=== PATIENT | male | born 1995 | race Caucasian/White ===

== ENCOUNTER 2017-01-23 14:10 | Emergency (ER) | payer OTHER ==
[2017-01-23] MEDS ORDERED: NS 1,000 ML IV ONE (14:15)
[2017-01-23] MEDS ORDERED: HYDROmorphONE/DILAUDID 1 MG/ML SYR IVP ONE ×2 (14:15→15:14)
--- NOTE | 2017-01-23 14:18 | EDPHY ---
H & P Source: Patient Exam Limitations: No limitations - Medical/Surgical History Hx Asthma: No Hx Chronic Respiratory Disease: No Hx Diabetes: No Hx Cardiac Disease: No Hx Renal Disease: No Hx Cirrhosis: No Hx Alcoholism: No - Family History Significant Family History: No pertinent family hx - Social History Alcohol Use: Sober Drug Use: None HPI/ROS: CHIEF COMPLAINT: Right ankle pain HISTORY OF PRESENT ILLNESS: Patient is a 21-year-old man who comes to the emergency department. He ran his foot and ankle over with a palate that he was pulling. This happened just prior to arrival. He has a laceration at the Achilles tendon region and some contusion to the anterior ankle. Neurovascularly intact. REVIEW OF SYSTEMS: Constitutional: denies: chills, fever, recent illness, recent injury EENTM: denies: blurred vision, double vision, nose congestion Respiratory: denies: cough, shortness of breath Cardiac: denies: chest pain, irregular heart rate, lightheadedness, palpitations Gastrointestinal/Abdominal: denies: abdominal pain, diarrhea, nausea, vomiting, blood streaked stools Genitourinary: denies: dysuria, frequency, hematuria, pain Musculoskeletal: See HPI Skin: denies: lesions, rash, jaundice, bruising Neurological: denies: headache, numbness, paresthesia, tingling, dizziness, weakness Hematologic/Lymphatic: denies: blood clots, easy bleeding, easy bruising Immunologic/allergic: denies: HIV/AIDS, transplant EXAM: GENERAL: Well-appearing, well-nourished and in no acute distress. HEAD: Atraumatic, normocephalic. EYES: Pupils equal round and reactive to light, extraocular movements intact, sclera anicteric, conjunctiva are normal. ENT: TMs normal, nares patent, oropharynx clear without exudates. Moist mucous membranes. NECK: Normal range of motion, supple without lymphadenopathy or JVD. LUNGS: Breath sounds clear to auscultation bilaterally and equal. No wheezes rales or rhonchi. HEART: Regular rate and rhythm without murmurs, rubs or gallops. ABDOMEN: Soft, nontender, normoactive bowel sounds. No guarding, no rebound. No masses appreciated. BACK: No CVA tenderness, no spinal tenderness, step-offs or deformities EXTREMITIES: Contusion to anterior right ankle. No deformity. No bony tenderness. Laceration above the Achilles tendon but normal function and range of motion. Strong pulses distally. Able to wiggle toes and depress gas pedal NEUROLOGICAL: Cranial nerves II through XII grossly intact. Normal speech, normal gait. 5/5 strength, normal movement in all extremities, normal sensation PSYCH: Normal mood, normal affect. SKIN: Warm, dry, normal turgor, no visible rashes or lesions. (Steven Simmons) Constitutional: Initial Vital Signs Temperature (C) 36.8 C 01/23/17 14:10 Heart Rate 94 01/23/17 14:10 Respiratory Rate 18 01/23/17 14:10 Blood Pressure 128/81 H 01/23/17 14:10 O2 Sat (%) 94 01/23/17 14:10 O2 Delivery Mode Room Air Allergies/Adverse Reactions: No Known Allergies Allergy (Unverified 01/23/17 14:16) Home Medications: Medication Instructions Recorded NK [No Known Home Meds] 01/23/17 Medical Decision Making - Diagnostics Imaging: I viewed and interpreted images myself - Diagnostics Imaging Results: X-ray: Ankle x-ray was obtained. I viewed the images myself on the PACS system. My interpretation of the images is: negative for acute disease . The radiologist interpretation is pending. (Steven Simmons) Procedures: My involvement the care this patient is solely for the procedure. Please see the attending physician no for all other aspects of care PROCEDURE: Laceration repair Consent: Verbal Location: Right heel Length of repair: 2.5 cm Complexity: Complex Layer involvement: Single Anesthesia: Local, 1% lidocaine Irrigation: Extensive Debridement: Moderate Procedure description: Following good anesthesia, the wound was copiously irrigated. Wound bed was explored and there is no foreign body noted. There was excisional debridement. Wound borders were approximated well with good hemostasis. Tolerated well without complication. Suture/Staple material: 4-0 Ethilon, 4 horizontal mattress sutures Wound care: Routine as discussed Suture/Staple removal: 7-10 Days (Nate Wong) ED Course/Re-evaluation: Care assumed by me from Dr. Simmons patient wound closure. I have anesthetized the wound. Wound closed by NEIL Wong. Patient discharged per Dr. Simmons plan. (Shravan Kruse) Ankle x-rays reassuring. Care transferred to Dr. Carrera. He will repair the patient's wound and discharge. (Steven Simmons) Differential Diagnosis: Partial list of the Differential diagnosis considered include but were not limited to; ankle fracture, dislocation, laceration, tendon injury and although unlikely based on the history and physical exam, I also considered vascular injury, nerve injury. (Steven Simmons) - Data Points Medications Given: Discontinued Medications Hydrocodone Bitart/Acetaminophen (Nelson 5/325mg Prepack#6) 1 btl TAKEHOME EDNOW ONE Stop: 01/23/17 16:49 Last Admin: 01/23/17 16:51 Dose: 1 btl Hydromorphone HCl (Dilaudid) 1 mg IVP EDNOW ONE Stop: 01/23/17 14:16 Last Admin: 01/23/17 14:32 Dose: Not Given Hydromorphone HCl (Dilaudid) 1 mg IVP EDNOW ONE Stop: 01/23/17 15:15 Last Admin: 01/23/17 15:16 Dose: 1 mg Sodium Chloride (Ns) 1,000 mls @ 0 mls/hr IV ONCE ONE; Wide Open PRN Reason: Protocol Stop: 01/23/17 14:16 Last Admin: 01/23/17 14:34 Dose: Not Given Departure - Departure Disposition: Home, Routine, Self-Care Clinical Impression: Laceration of heel Qualifiers: Encounter type: initial encounter Laterality: right Qualified Code(s): S91.311A - Laceration without foreign body, right foot, initial encounter Crush injury lower leg Qualifiers: Encounter type: initial encounter Laterality: right Qualified Code(s): S87.81XA - Crushing injury of right lower leg, initial encounter Condition: Good Instructions: Hydrocodone/Acetaminophen (By mouth), Care For Your Stitches (ED) , Laceration (ED), Abrasion (ED) Additional Instructions: 1. sutures will need to be removed in 7-10 days 2. Follow up with her worker's compensation designated clinic Referrals: Patient,NotPresent [Unknown] - As per Instructions All Lozada MD [[facility] Primary Care Provider] - As per Instructions Stand Alone Forms: Work Comp Follow Up
[2017-01-23 14:20] VITALS: RESP 18
[2017-01-23] MEDS ORDERED: HYDROCOD/APAP 5/325 PREPACK#6 BTL TAKEHOME ONE (16:48)
[2017-01-23 16:50] VITALS: BP 130/71; PULSE 71; TEMP 97.9; O2SAT 95
== END 2017-01-23 17:15 | disposition home or self-care (01) ==
PROC: 0HQMXZZ Repair Right Foot Skin, External Approach (ICD-10-PCS; principal; 2017-01-23)
DX: S91.311A Laceration without foreign body, right foot, initial encounter (principal); S87.81XA Crushing injury of right lower leg, initial encounter; W23.1XXA Caught, crushed, jammed, or pinched between stationary objects, initial encounter
CPT/HCPCS: 96374; J1170